=== PATIENT | male | born 1960 | race Hispanic/Latino ===

== ENCOUNTER 2017-11-25 23:38 | Emergency (ER) | payer OTHER ==
[2017-11-25 23:38] VITALS: BMI 22.1
[2017-11-25 23:43] VITALS: RESP 16; O2SAT 98
--- NOTE | 2017-11-26 02:21 | ED PDOC ---
HPI: General Adult Time Seen by Provider: 11/25/17 23:57 Chief Complaint (Nursing): Alcohol Ingestion History Per: Patient Additional Complaint(s): Pt. states he has not had a normal BM since Wednesday. States he has felt constipated. Pt. states he has been able to pass small hard stool. Further states he was dc'd from [facility] on 11/24/2017 due to an upper GI bleed. Pt. states while in the hospital he was not given any constipation medications and did not have any BMs. Further requesting to sleep in the ED as he is currently homeless. Admits to drinking alcohol today. Denies abdominal pain, chest pain, SOB, weakness, melena, hematochezia, BRBPR, hematemesis. Past Medical History Reviewed: Historical Data, Nursing Documentation, Vital Signs Vital Signs: Last Vital Signs Temp 97.7 F 11/25/17 23:41 Pulse 83 11/25/17 23:41 Resp 16 11/25/17 23:41 BP 137/83 11/25/17 23:41 Pulse Ox 98 11/26/17 02:23 - Medical History PMH: CVA (09/26/2013), HTN, Hypercholesterolemia, Hypothyroidism - Surgical History Surgical History: Endoscopy - Family History Family History: States: No Known Family Hx - Immunization History Hx Tetanus Toxoid Vaccination: No Hx Influenza Vaccination: No Hx Pneumococcal Vaccination: No - Home Medications Home Medications: Ambulatory Orders Medication Instructions Recorded Levothyroxine Sodium [Levothroid] 0.088 mg PO DAILY 09/04/14 Folic Acid 1 mg PO DAILY #30 tab 11/24/17 Multivitamin [Multi-Vitamin Daily] 1 each PO DAILY #30 tablet 11/24/17 Omeprazole Magnesium [Prilosec Otc] 40 mg PO DAILY #30 tcp 11/24/17 Thiamine HCl 100 mg PO DAILY #30 tablet 11/24/17 Docusate [Colace] 100 mg PO BID PRN #10 cap 11/26/17 - Allergies Allergies/Adverse Reactions: Allergies Allergy/AdvReac Type Severity Reaction Status Date / Time No Known Allergies Allergy Verified 11/25/17 23:40 Review of Systems ROS Statement: Except As Marked, All Systems Reviewed And Found Negative Gastrointestinal: Positive for: Constipation Physical Exam - Physical Exam Appears: Positive for: Well, Non-toxic, No Acute Distress Head Exam: Positive for: ATRAUMATIC, NORMAL INSPECTION, NORMOCEPHALIC Skin: Positive for: Normal Color, Warm. Negative for: Rash Eye Exam: Positive for: Normal appearance Cardiovascular/Chest: Positive for: Regular Rate, Rhythm, Chest Non Tender Respiratory: Positive for: Normal Breath Sounds. Negative for: Respiratory Distress Gastrointestinal/Abdominal: Positive for: Normal Exam, Bowel Sounds, Soft. Negative for: Tenderness, Distended Back: Positive for: Normal Inspection. Negative for: L CVA Tenderness, R CVA Tenderness, Vertebral Tenderness Rectal: Positive for: Normal Exam. Negative for: Black Stool, Blood Streaked Stool, Hemorrhoids Neurologic/Psych: Positive for: Alert, Oriented (x3), Other (slurred speech, AOB ). Negative for: Aphasia, Facial Droop - ECG O2 Sat by Pulse Oximetry: 98 - Progress ED Course And Treament: Colace 100mg PO ordered. ETOH: [id number] On re-evaluation, pt. in no distress. Sleeping comfortably. Easily arousable to verbal stimuli. Abd remains soft, non-tender, non-distended. gait steady, unassisted. No slurred speech. Disposition - Clinical Impression Clinical Impression: Alcohol abuse with intoxication, Constipation - Patient ED Disposition Is Patient to be Admitted: No - Disposition Referrals: Raisa Sands MD [Primary Care Provider] - Disposition: Routine/Home Disposition Time: 05:23 Condition: STABLE Additional Instructions: UR MARCUM, thank you for letting us take care of you today. Your provider was Juan Jose Haji MD and you were treated for ETOH, CONSTIPATION. The emergency medical care you received today was directed at your acute symptoms. If you were prescribed any medication, please fill it and take as directed. It may take several days for your symptoms to resolve. Return to the Emergency Department if your symptoms worsen, do not improve, or if you have any other problems. Please contact your doctor or call one of the physicians/clinics you have been referred to that are listed on the Patient Visit Information form that is included in your discharge packet. Bring any paperwork you were given at discharge with you along with any medications you are taking to your follow up visit. Our treatment cannot replace ongoing medical care by a primary care provider outside of the emergency department. Thank you for allowing the [facility] team to be part of your care today. If you had an X-Ray or CT scan: A Radiologist will review the ED reading if any change in treatment is needed we will contact you. If you had a blood, urine, or wound culture: It will take several days for the results, if any change in treatment is needed we will contact you. If you had an STI test: It will take 48 hours for the results. Please call after 1 week if you have not heard back. Prescriptions: Docusate [Colace] 100 mg PO BID PRN #10 cap PRN Reason: Constipation Instructions: Constipation, Adult (DC), Alcohol Abuse and Alcoholism (DC) Forms: [facility] ([place])
[2017-11-26 05:43] VITALS: BP 119/76; PULSE 86; TEMP 98
== END 2017-11-26 05:55 | disposition home or self-care (01) ==
LOC: H.ER 23:38
DX: F10.129 Alcohol abuse with intoxication, unspecified (principal); K59.00 Constipation, unspecified; E03.9 Hypothyroidism, unspecified; E78.00 Pure hypercholesterolemia, unspecified; I10 Essential (primary) hypertension; Z86.73 Personal history of transient ischemic attack (TIA), and cerebral infarction without residual deficits; Z59.0 Homelessness